=== PATIENT | male | born 1995 | race Caucasian/White ===

== ENCOUNTER 2017-05-09 16:56 | Emergency (ER) | payer BC ==
[~2017-05-09] VITALS: Ht 172.7 cm; Wt 73.7 kg
[2017-05-09 17:01] VITALS: TEMP 38.3; Ht 172.7 cm; Wt 73.7 kg
[2017-05-09] MEDS ORDERED: IBUPROFEN 600 MG TAB PO STA (17:22)
--- NOTE | 2017-05-09 17:35 | EMERGENCY ROOM VISIT NOTE ---
History First contact with patient: 17:04 Chief Complaint: FEVER Stated Complaint: FEVER History of Present Illness The patient is a 22 year old male who presents to the Emergency Room with complaints of fever and chills, headache, neck pain, nasal congestion, fatigue and nausea. The patient has not taken any ibuprofen or Tylenol for his pain or fever. He was seen at the [facility] walk-in clinic and referred here for evaluation of possible meningitis. The patient reports that his headache and neck pain are better since he was seen earlier this afternoon, and denies any significant pain with movement of the neck. He denies any other recent known sick contacts. He denies any recent foreign travel. The patient did not get the influenza immunization this year. The patient rates his overall discomfort a 3 out of 10. Review of Systems 10 system review was performed and was negative except for pertinent positives and negatives as indicated in history of present illness Social History Smoking Status: Never Smoker Current/Historical Medications No Active Prescriptions or Reported Meds Physical Exam Vital Signs Date Time Temp Pulse Resp B/P (MAP) Pulse Ox O2 Delivery O2 Flow Rate FiO2 05/09/17 17:01 38.3 104 20 91/62 97 Room Air Physical Exam CONSTITUTIONAL: Healthy and well nourished. Alert and oriented X 3 with positive affect. The patient does not appear in any acute distress, nor does he appear acutely ill or toxic. HEENT: Normocephalic, atraumatic. Pupils equal, round and reactive. Ears are clear. The patient has mild rhinorrhea. No photophobia noted. OROPHARYNX: Mild posterior pharyngeal erythema without tonsillar hypertrophy or exudates. Negative trismus. No evidence for Chuckie's angina or retropharyngeal abscess. NECK: Full active range of motion without discomfort. No nuchal rigidity, Kernig's or Brudzinski sign. LYMPHATICS: No cervical chain adenopathy noted. RESPIRATORY: Clear to auscultation bilaterally with no wheezing, crackles, rhonchi or stridor. CARDIOVASCULAR: Mildly tachycardic with no murmurs, rubs or gallops. GASTROINTESTINAL: Bowel sounds present in all quadrants. Soft and nontender to palpation. MUSCULOSKELETAL: Full range of motion of all joints without discomfort. INTEGUMENTARY: No rash or other significant dermatologic conditions noted. NEUROLOGIC: No focal neurologic deficits noted. Medical Decision & Procedures ED Course Patient history and physical exam were performed. Nurse's notes were reviewed. Vital signs were reviewed. The patient is febrile with a temperature of 38.3 C, and mild tachycardia of 104 bpm. The patient does not appear acutely ill or in any acute distress. The patient reports that his headache and neck pain have improved, and does not have any physical exam findings to suggest acute meningitis at this time. The patient was instructed to return to the emergency department for any progressively worsening symptoms, otherwise was advised that he likely has a viral illness. He was encouraged to rest and remain well- hydrated. Alternate ibuprofen and Tylenol as needed for pain and fever. The patient was administered ibuprofen 600 mg in the emergency department. He was encouraged to follow-up with his PCP if symptoms are not improving within the next week. The patient was happy with plan of care, voiced understanding of all discharge instructions, and denied any significant pain at the conclusion of my exam. Medical Decision Medication Reconcilliation Current Medication List: was personally reviewed by me Blood Pressure Screening Patient's blood pressure: Normal blood pressure Impression Primary Impression: Viral upper respiratory infection Departure Information Dispostion Home / Self-Care Prescriptions No Active Prescriptions or Reported Meds Forms HOME CARE DOCUMENTATION FORM, IMPORTANT VISIT INFORMATION Patient Instructions [facility] Additional Instructions Rest and remain well-hydrated. Ibuprofen 800 mg and/or Tylenol 1000 mg every 8 hours. You may also alternate these medications for more effective pain relief: Ibuprofen --4 HRS--> Tylenol --4 HRS--> ibuprofen --4 HRS--> Tylenol .... With any developing sinus congestion, suggest taking Sudafed or similar decongestant. With any developing cough, suggest Mucinex and your choice of OTC cough medication. Follow-up with your family doctor if symptoms are not improving within the next week. Return to the emergency department for any worsening symptoms, including headache, sensitivity to light, neck pain or back pain.
[2017-05-09 17:58] VITALS: BP 124/76; PULSE 88; O2SAT 98
== END 2017-05-09 17:58 | disposition home or self-care (01) ==
LOC: C.EDB 16:58 → C.EDC 17:58
DX: J06.9 Acute upper respiratory infection, unspecified (principal)